=== PATIENT | female | born 1990 | race Caucasian/White ===

== ENCOUNTER 2017-03-03 11:59 | Inpatient (IN) | payer OTHER ==
[2017-03-03] VITALS (21 sets, daily range): BP systolic 101–148; BP diastolic 57–104
[~2017-03-03] VITALS: Ht 162.6 cm; Wt 108.4 kg
[~2017-03-03 11:59] MED LIST: FLINCHW5 PO; MOTR200T44 PO; PERCOCET PO
[2017-03-03] MEDS ORDERED: LR 1,000 ML IV SCH ×2 (13:11→18:39)
[2017-03-03] MEDS ORDERED: PENICILLIN G POTASSIUM IV 5 MU in D5W MINI-BAG PLUS 100 ML IV STA (13:11)
[2017-03-03] MEDS ORDERED: miSOPROStol 50 MCG 1/2 TAB (S0191) PO SCH (13:30)
[2017-03-03 14:25] LABS: MEAN CORPUSCULAR HEMOGLOBIN 29.1 pg (27.0-33.0); MEAN CORPUSCULAR HGB CONC 34.7 g/dl (32.0-36.5); MEAN CORPUSCULAR VOLUME 83.7 fl (80.0-96.0); WHITE BLOOD COUNT 9.5 K/mm3 (4.0-10.0)
[2017-03-03] MEDS ORDERED: OXYTOCIN DRIP 30 UNITS in APPROPRIATE DILUENT 1 EA IV SCH (18:45)
[2017-03-03] MEDS ORDERED: FENTANYL 2MCG/ML ROPIVACAINE 0.2% IN 0.9% NACL 200ML IVBAG As Ordered ONE (20:20)
[2017-03-03] MEDS ORDERED: diphenhydrAMINE INJ 50MG/ML VIAL (J1200) IV PRN (21:15)
[2017-03-03] MEDS ORDERED: ePHEDrine SULFATE 25 MG/5 ML(5MG/ML) SYRINGE IV PRN (21:15)
[2017-03-03] MEDS ORDERED: EPIDURAL/PCA KEYS XX PRN (21:15)
[2017-03-03] MEDS ORDERED: EPIDURAL COMMENT XX SCH (21:15)
[2017-03-03] MEDS ORDERED: FENTANYL/ROPIVACAINE/NACL BAG 200 ML EPIDURAL SCH (21:15)
[2017-03-03] MEDS ORDERED: NALOXONE INJ 0.4 MG/1 ML VIAL (J2310) IV PRN (21:15)
[2017-03-03] MEDS ORDERED: ONDANSETRON 4MG/2ML VIAL (J2405) IV PRN (21:15)
[2017-03-03] MEDS ORDERED: REFRIGERATOR IV KEYS XX PRN (21:15)
[2017-03-03] MEDS ORDERED: PENICILLIN G POTASSIUM IV 2.5 MU in D5W 100 ML IV SCH (23:00)
[2017-03-04] VITALS (7 sets, daily range): BP systolic 110–135; BP diastolic 58–81
[2017-03-04] MEDS ORDERED: DIBUCAINE 1% OINTMENT 30GM TOP PRN (01:00)
[2017-03-04] MEDS ORDERED: DOCUSATE SODIUM 100 MG CAP PO PRN (01:00)
[2017-03-04] MEDS ORDERED: MEASLES,MUMPS,RUBELLA VACCINE INJ (MMR-II) (90707) SC SCH (01:00)
[2017-03-04] MEDS ORDERED: ANUSOL HC CREAM 30GM TOP PRN (01:00)
[2017-03-04] MEDS ORDERED: MOM 30ML SUSPENSION UDC PO PRN (01:00)
[2017-03-04] MEDS ORDERED: PROMETHAZINE 25 MG TAB PO PRN (01:00)
[2017-03-04] MEDS ORDERED: ACETAMINOPHEN TAB 650MG DOSE (2X325MG) PO PRN (01:00)
[2017-03-04] MEDS ORDERED: ONDANSETRON 4MG/2ML VIAL (J2405) IV PRN (01:00)
[2017-03-04] MEDS: PRENATAL VITAMINS CHEWABLE TABLET PO SCH (09:05)
[2017-03-04] MEDS: IBUPROFEN 600 MG TAB PO PRN ×2 (09:05→22:51)
[2017-03-05 05:45] VITALS: BP 106/58
[2017-03-05] MEDS: PRENATAL VITAMINS CHEWABLE TABLET PO SCH (08:32)
[2017-03-05] MEDS: IBUPROFEN 600 MG TAB PO PRN (15:27)
[2017-03-05 18:02] VITALS: BP 119/76
[2017-03-06] MEDS: IBUPROFEN 600 MG TAB PO PRN (05:23)
[2017-03-06 06:07] VITALS: BP 121/82
--- NOTE | 2017-03-06 07:41 | IPNPDOC ---
Text Note Date of Service The patient was seen on 03/06/17. NOTE PPD2 prog note States feeling well, no complaints. No heavy VB. Pain controlled. Voiding, ambulatory. Bonding well and breast feeding well. VSSAF CTAB RRR Ut at U-2, firm Ext no CCE a/p: Doing well. d/c this morning. To bonding if baby not released. Breast pump rx given Sessions VS,Jona, I+O VSJona, I+O Vital Signs Date Time Temp Pulse Resp B/P (MAP) Pulse Ox O2 Delivery O2 Flow Rate FiO2 03/06/17 06:07 97.5 73 18 121/82 (95) I&O- Last 24 Hours up to 6 AM 03/06/17 06:00 Intake Total 480 ml Balance 480 ml SESSIONS,BONIFACIO Hooks MD Mar 06, 2017 07:41
--- NOTE | 2017-03-06 07:49 | DS.PDOC ---
Discharge Summary General Date of Admission Mar 03, 2017 at 12:00 Date of Discharge [id number] Discharge Summary PROCEDURES PERFORMED DURING STAY: spontaneous vaginal delivery ADMITTING DIAGNOSIS: 1. Active Labor DISCHARGE DIAGNOSES: 1. Healthy infant HOSPITAL COURSE: Admitted for active labor and delivery. Uncomplicated, see delivery note. DISCHARGE MEDICATIONS: Motrin, Tylenol, Colace, Lanolin, Nor for PP control Physical exam: see note from this morning LABORATORY DATA: Please see below. ACTIVITY: as tolerated. Nothing in vagina for 6 weeks. DIET: regular DISPOSITION:stable TIME SPENT ON DISCHARGE: Greater than 15 minutes. Sessions Vital Signs/I&Os Vital Signs Date Time Temp Pulse Resp B/P (MAP) Pulse Ox O2 Delivery O2 Flow Rate FiO2 03/06/17 06:07 97.5 73 18 121/82 (95) I&O- Last 24 Hours up to 6 AM 03/06/17 06:00 Intake Total 480 ml Balance 480 ml Discharge Medications Scheduled (Flintstones Plus Iron) 1 Chw Chw, 1 CHW PO DAILY, (Reported) Allergies Coded Allergies: No Known Allergies (Unverified , 06/28/14) SESSIONS,BONIFACIO Hooks MD Mar 06, 2017 07:49
[2017-03-06] MEDS: PRENATAL VITAMINS CHEWABLE TABLET PO SCH (08:00)
[2017-03-06] MEDS ORDERED: IBUP-1114 PO (08:34)
[2017-03-06] MEDS ORDERED: ACET50TA PO (08:34)
[2017-03-06] MEDS ORDERED: COLA100C5 PO (08:34)
== END 2017-03-06 12:50 | disposition home or self-care (01) | DRG 775 ==
LOC: M LDO 11:59 → M LDI 12:00 → M OBS 03-04 02:39
PROVIDERS: ADMIT Obstetrics & Gynecology; ATTEND Obstetrics & Gynecology
PROC: 10907ZC Drainage of Amniotic Fluid, Therapeutic from Products of Conception, Via Natural or Artificial Opening (ICD-10-PCS; 2017-03-03)
PROC: 10E0XZZ Delivery of Products of Conception, External Approach (ICD-10-PCS; principal; 2017-03-04)
PROC: 0HQ9XZZ Repair Perineum Skin, External Approach (ICD-10-PCS; 2017-03-04)
DX: O48.0 Post-term pregnancy (principal); O99.824 Streptococcus B carrier state complicating childbirth; Z3A.40 40 weeks gestation of pregnancy; O69.2XX0 Labor and delivery complicated by other cord entanglement, with compression, not applicable or unspecified; Z37.0 Single live birth